=== PATIENT | female | born 1970 | race Caucasian/White ===

== ENCOUNTER 2019-10-24 16:18 | Emergency (ER) | payer SELFPAY ==
--- NOTE | 2019-10-24 16:32 | ED_ITS ---
Documented by User: Eleazar Armas DO 10/25/19 06:13 HPI - URI/Sore Throat General: Chief Complaint: Anxiety Stated Complaint: covid symptoms Time Seen by Provider: 10/24/19 16:26 History of Present Illness: HPI Narrative: 49-year-old female comes in complaining of not feeling well this started yesterday she has some myalgias and a low-grade fever T-max was 99.9 she did take some ibuprofen for it before she came in she has been nauseous no vomiting or diarrhea she has had some myalgias. No alteration in sense of taste or smell. She is concerned she may had COVID because she was around her boyfriend's sister's daughter who may have been exposed while playing basketball. MD elicited complaint: fever (Low-grade) and cough Onset (ago): hour(s) Consistency: constant Severity: mild Able to tolerate fluids by mouth: Yes Exacerbating factors: nothing Relieving factors: nothing Context: sick contacts (Potential boyfriend sister's daughter) Associated symptoms: Deny abdominal pain, chills, chest pain, diarrhea, ear or mastoid pain, fever(s), nasal congestion, nausea or vomiting Review of Systems Const: Denies: fever(s), chills, body aches, change in appetite, fatigue or malaise ENMT: Denies: throat pain, ear or mastoid pain, nasal discharge or nasal congestion Card: Denies: chest pain, edema, dyspnea on exertion or orthopnea Resp: Denies: dyspnea, productive cough or non-productive cough GI: Denies: abdominal pain, nausea, vomiting, hematemesis, coffee ground emesis, diarrhea, constipation, bloating, hematochezia or melena : Denies: flank pain, difficulty voiding, dysuria, urinary frequency or urinary urgency Skin/Breast: Denies: rash or pruritus PFSH ED PFSH: Medical History (Updated 10/24/19 @ 19:27 by Ramses Fajardo MD) No pertinent past medical history Surgical History (Updated 10/24/19 @ 17:48 by Eleazar Armas DO) H/O tubal ligation History of appendectomy Social History (Updated 07/07/19 @ 10:22 by Cheri Draper LPN) Smoking and tobacco status: current some day smoker Alcohol intake: current Physical Exam Const: COMMON NORMALS: no acute distress GENERAL APPEARANCE: cooperative and comfortable ORIENTATION/CONSCIOUSNESS: Yes awake, Yes oriented to person, Yes oriented to place and Yes oriented to time Eye: COMMON NORMALS: Equal, round and reactive pupils present, EOMs intact bilaterally, conjunctivae normal and no scleral icterus CONJUNCTIVA: Yes conjunctivae normal PUPIL: Yes Equal, round and reactive pupils present Neck/C-Spine: COMMON NORMALS: full ROM, no lymphadenopathy, supple and no JVD Lymph: LYMPHATIC: no lymphadenopathy noted and no lymphedema noted Resp: COMMON NORMALS: normal respiratory effort, No retractions, No use of accessory muscles and clear to auscultation bilaterally AUSCULTATION: clear to auscultation bilaterally Cardio: COMMON NORMALS: no JVD, regular rate, regular rhythm and No murmurs present (Cardio) RATE: regular rate RHYTHM: regular rhythm GI: COMMON NORMALS: Soft to palpation and No hepatosplenomegaly present AUSCULTATION: Yes normoactive bowel sounds PALPATION: Yes Soft to palpation, No Tenderness to palpation present (GI), No Guarding due to palpation present (GI) and Yes No hepatosplenomegaly present Extremity: COMMON NORMALS: normal to inspection, capillary refill normal, no clubbing, cyanosis or edema, no calf tenderness and no pedal edema Neuro: SENSORIUM/ORIENTATION: Yes oriented to person, Yes oriented to place and Yes oriented to time Skin: COMMON NORMALS: no rashes or lesions noted GENERAL SKIN EXAM: no rashes or lesions noted Course Vital Signs: Vital signs: Vital Signs Temperature 97.8 F 10/24/19 16:34 Pulse Rate 93 10/24/19 19:41 Respiratory Rate 18 10/24/19 19:41 Blood Pressure 132/86 10/24/19 19:41 Pulse Oximetry 96 10/24/19 19:41 MDM - URI/Sore Throat MDM Narrative: Medical decision making narrative: Ricki villalobos to Dr. Fajardo at change of shift Lab Data: Labs: Lab Results 10/24/19 10/24/19 10/24/19 Range/Units 17:35 18:00 18:40 WBC 12.9 H (4.0-10.0) 10^3/ uL RBC 4.31 (4.1-5.3) 10^6/u L Hgb 12.7 (11.5-15.3) g/dL Hct 40.4 (37.0-47.0) % MCV 93.7 (81-99) fL MCH 29.5 (28.0-34.0) pg MCHC 31.4 (30.0-36.0) g/dL RDW 12.5 (12.1-15.1) % Plt Count 275 (130-400) 10^3/c mm MPV 10.8 H (7.4-10.4) fL Neut % (Auto) 78.3 % Lymph % (Auto) 13.8 % [place] % (Auto) 6.2 % Eos % (Auto) 1.0 % Baso % (Auto) 0.4 % Neut # (Auto) 10.14 H (1.8-7.7) 10^3/u L Lymph # (Auto) 1.8 (0.8-4.8) 10^3/u L [place] # (Auto) 0.8 (0.2-0.9) 10^3/u L Eos # (Auto) 0.1 (0.0-0.8) 10^3/u L Baso # (Auto) 0.1 (0.0-0.1) 10^3/u L Nucleated RBC % (a uto) 0 % Nucleated RBCs # 0.0 /100WBC Specimen Type Arterial Sample Site Radial, right ABG pH 7.45 (7.35-7.45) ABG pCO2 29.3 L (35-45) mmHg ABG pO2 101.0 H (80.0-100.0) mmH g ABG HCO3 20.3 L (22-26) mmol/L ABG O2 Saturation 98.8 ABG Base Excess -2.7 L (-2.0-2.0) mmol/ L David Test Pos A-a O2 Gradient 10.1 H (5-10) mmHg Hematocrit 38.2 (37-47) % Hgb O2 Saturation 96.1 (95-100) % Carboxyhemoglobin 1.8 (0.4-20.1) %THgb Methemoglobin 0.9 (0.4-1.5) % Total Hemoglobin 12.4 (12-16) g/dL Sodium 133.0 (131-143) mmol/L Potassium 4.0 (3.5-5.0) mmol/L Glucose 108.0 (70-115) mg/dL Ionized Calcium 1.2 (1.1-1.4) mmol/L O2 Delivery Device Room air FiO2 21.0 % Isolation Washer ID amh Chloride (98-107) mmol/L Carbon Dioxide (22-29) mmol/L Anion Gap (5-19) BUN (6-20) mg/dL Creatinine (0.5-0.9) mg/dL GFR Calculation (90-130) mL/min Calculated Osmolal ity (285-295) mOsm/k g Calcium (8.5-10.5) mg/dL Total Bilirubin (0.15-1.2) mg/dL AST (0-32) U/L ALT (0-33) U/L Alkaline Phosphata se (35-105) IU/L Total Protein (6.6-8.7) g/dL Albumin (3.5-5.2) g/dL Globulin (1.3-4.6) g/dL Influenza Type A A g Negative (Negative) Influenza Type B A g Negative (Negative) 10/24/19 Range/Units 18:40 WBC (4.0-10.0) 10^3/ uL RBC (4.1-5.3) 10^6/u L Hgb (11.5-15.3) g/dL Hct (37.0-47.0) % MCV (81-99) fL MCH (28.0-34.0) pg MCHC (30.0-36.0) g/dL RDW (12.1-15.1) % Plt Count (130-400) 10^3/c mm MPV (7.4-10.4) fL Neut % (Auto) % Lymph % (Auto) % [place] % (Auto) % Eos % (Auto) % Baso % (Auto) % Neut # (Auto) (1.8-7.7) 10^3/u L Lymph # (Auto) (0.8-4.8) 10^3/u L [place] # (Auto) (0.2-0.9) 10^3/u L Eos # (Auto) (0.0-0.8) 10^3/u L Baso # (Auto) (0.0-0.1) 10^3/u L Nucleated RBC % (a uto) % Nucleated RBCs # /100WBC Specimen Type Sample Site ABG pH (7.35-7.45) ABG pCO2 (35-45) mmHg ABG pO2 (80.0-100.0) mmH g ABG HCO3 (22-26) mmol/L ABG O2 Saturation ABG Base Excess (-2.0-2.0) mmol/ L David Test A-a O2 Gradient (5-10) mmHg Hematocrit (37-47) % Hgb O2 Saturation (95-100) % Carboxyhemoglobin (0.4-20.1) %THgb Methemoglobin (0.4-1.5) % Total Hemoglobin (12-16) g/dL Sodium 132 L (131-143) mmol/L Potassium 4.3 (3.5-5.0) mmol/L Glucose 101 (70-115) mg/dL Ionized Calcium (1.1-1.4) mmol/L O2 Delivery Device FiO2 % Isolation Washer ID Chloride 99 (98-107) mmol/L Carbon Dioxide 21 L (22-29) mmol/L Anion Gap 16.3 (5-19) BUN 12 (6-20) mg/dL Creatinine 0.8 (0.5-0.9) mg/dL GFR Calculation 76.6 L (90-130) mL/min Calculated Osmolal ity 270 L (285-295) mOsm/k g Calcium 9.2 (8.5-10.5) mg/dL Total Bilirubin 1.0 (0.15-1.2) mg/dL AST 25 (0-32) U/L ALT 16 (0-33) U/L Alkaline Phosphata se 88 (35-105) IU/L Total Protein 7.3 (6.6-8.7) g/dL Albumin 4.1 (3.5-5.2) g/dL Globulin 3.2 (1.3-4.6) g/dL Influenza Type A A g (Negative) Influenza Type B A g (Negative) Discharge Plan Discharge Patient Disposition: Home, Self-Care Clinical Impression: Upper respiratory infection Qualifiers: URI type: unspecified URI Qualified Code(s): J06.9 - Acute upper respiratory infection, unspecified Condition: Stable Prescriptions: No Action cetirizine 10 mg Tablet 10 mg PO DAILY RF: 0 Midol 500-25 mg Tablet 1 tab PO Q4H PRN (Reason: Cramps) RF: 0 Discharge Orders: Discharge Order (Routine); Ordered 10/24/19 Ordered By: Ramses Fajardo Discharge Diet: Advance as tolerated Discharge Activity: Resume usual activity Patient Instructions: Upper Respiratory Infection (ED) Discharge Date/Time: 10/24/19 19:36 Coding Level of Care Code ED Casing Mixer for Chg Fwd Exam Comprehensive Documented by User: Ramses Fajardo MD 10/24/19 19:30 HPI - URI/Sore Throat General: Chief Complaint: Anxiety Stated Complaint: covid symptoms Time Seen by Provider: 10/24/19 16:26 [facility] ED PFSH: Medical History (Updated 10/24/19 @ 19:27 by Ramses Fajardo MD) No pertinent past medical history Surgical History (Updated 10/24/19 @ 17:48 by Eleazar Armas DO) H/O tubal ligation History of appendectomy Social History (Updated 07/07/19 @ 10:22 by Cheri Draper LPN) Smoking and tobacco status: current some day smoker Alcohol intake: current Course Vital Signs: Vital signs: Vital Signs Temperature 97.8 F 10/24/19 16:34 Pulse Rate 93 10/24/19 19:41 Respiratory Rate 18 10/24/19 19:41 Blood Pressure 132/86 10/24/19 19:41 Pulse Oximetry 96 10/24/19 19:41 MDM - URI/Sore Throat MDM Narrative: Medical decision making narrative: Patient presents here worried about coronavirus she has upper respiratory infection-like symptoms. Patient was tested and is to self quarantine until results. She is in no respiratory distress here and lab work and x-ray is normal. She is stable for discharge and return if worsening. Patient understands and agrees to plan. Lab Data: Labs: Lab Results 10/24/19 10/24/19 10/24/19 Range/Units 17:35 18:00 18:40 WBC 12.9 H (4.0-10.0) 10^3/ uL RBC 4.31 (4.1-5.3) 10^6/u L Hgb 12.7 (11.5-15.3) g/dL Hct 40.4 (37.0-47.0) % MCV 93.7 (81-99) fL MCH 29.5 (28.0-34.0) pg MCHC 31.4 (30.0-36.0) g/dL RDW 12.5 (12.1-15.1) % Plt Count 275 (130-400) 10^3/c mm MPV 10.8 H (7.4-10.4) fL Neut % (Auto) 78.3 % Lymph % (Auto) 13.8 % [place] % (Auto) 6.2 % Eos % (Auto) 1.0 % Baso % (Auto) 0.4 % Neut # (Auto) 10.14 H (1.8-7.7) 10^3/u L Lymph # (Auto) 1.8 (0.8-4.8) 10^3/u L [place] # (Auto) 0.8 (0.2-0.9) 10^3/u L Eos # (Auto) 0.1 (0.0-0.8) 10^3/u L Baso # (Auto) 0.1 (0.0-0.1) 10^3/u L Nucleated RBC % (a uto) 0 % Nucleated RBCs # 0.0 /100WBC Specimen Type Arterial Sample Site Radial, right ABG pH 7.45 (7.35-7.45) ABG pCO2 29.3 L (35-45) mmHg ABG pO2 101.0 H (80.0-100.0) mmH g ABG HCO3 20.3 L (22-26) mmol/L ABG O2 Saturation 98.8 ABG Base Excess -2.7 L (-2.0-2.0) mmol/ L David Test Pos A-a O2 Gradient 10.1 H (5-10) mmHg Hematocrit 38.2 (37-47) % Hgb O2 Saturation 96.1 (95-100) % Carboxyhemoglobin 1.8 (0.4-20.1) %THgb Methemoglobin 0.9 (0.4-1.5) % Total Hemoglobin 12.4 (12-16) g/dL Sodium 133.0 (131-143) mmol/L Potassium 4.0 (3.5-5.0) mmol/L Glucose 108.0 (70-115) mg/dL Ionized Calcium 1.2 (1.1-1.4) mmol/L O2 Delivery Device Room air FiO2 21.0 % Isolation Washer ID amh Chloride (98-107) mmol/L Carbon Dioxide (22-29) mmol/L Anion Gap (5-19) BUN (6-20) mg/dL Creatinine (0.5-0.9) mg/dL GFR Calculation (90-130) mL/min Calculated Osmolal ity (285-295) mOsm/k g Calcium (8.5-10.5) mg/dL Total Bilirubin (0.15-1.2) mg/dL AST (0-32) U/L ALT (0-33) U/L Alkaline Phosphata se (35-105) IU/L Total Protein (6.6-8.7) g/dL Albumin (3.5-5.2) g/dL Globulin (1.3-4.6) g/dL Influenza Type A A g Negative (Negative) Influenza Type B A g Negative (Negative) 10/24/19 Range/Units 18:40 WBC (4.0-10.0) 10^3/ uL RBC (4.1-5.3) 10^6/u L Hgb (11.5-15.3) g/dL Hct (37.0-47.0) % MCV (81-99) fL MCH (28.0-34.0) pg MCHC (30.0-36.0) g/dL RDW (12.1-15.1) % Plt Count (130-400) 10^3/c mm MPV (7.4-10.4) fL Neut % (Auto) % Lymph % (Auto) % [place] % (Auto) % Eos % (Auto) % Baso % (Auto) % Neut # (Auto) (1.8-7.7) 10^3/u L Lymph # (Auto) (0.8-4.8) 10^3/u L [place] # (Auto) (0.2-0.9) 10^3/u L Eos # (Auto) (0.0-0.8) 10^3/u L Baso # (Auto) (0.0-0.1) 10^3/u L Nucleated RBC % (a uto) % Nucleated RBCs # /100WBC Specimen Type Sample Site ABG pH (7.35-7.45) ABG pCO2 (35-45) mmHg ABG pO2 (80.0-100.0) mmH g ABG HCO3 (22-26) mmol/L ABG O2 Saturation ABG Base Excess (-2.0-2.0) mmol/ L David Test A-a O2 Gradient (5-10) mmHg Hematocrit (37-47) % Hgb O2 Saturation (95-100) % Carboxyhemoglobin (0.4-20.1) %THgb Methemoglobin (0.4-1.5) % Total Hemoglobin (12-16) g/dL Sodium 132 L (131-143) mmol/L Potassium 4.3 (3.5-5.0) mmol/L Glucose 101 (70-115) mg/dL Ionized Calcium (1.1-1.4) mmol/L O2 Delivery Device FiO2 % Isolation Washer ID Chloride 99 (98-107) mmol/L Carbon Dioxide 21 L (22-29) mmol/L Anion Gap 16.3 (5-19) BUN 12 (6-20) mg/dL Creatinine 0.8 (0.5-0.9) mg/dL GFR Calculation 76.6 L (90-130) mL/min Calculated Osmolal ity 270 L (285-295) mOsm/k g Calcium 9.2 (8.5-10.5) mg/dL Total Bilirubin 1.0 (0.15-1.2) mg/dL AST 25 (0-32) U/L ALT 16 (0-33) U/L Alkaline Phosphata se 88 (35-105) IU/L Total Protein 7.3 (6.6-8.7) g/dL Albumin 4.1 (3.5-5.2) g/dL Globulin 3.2 (1.3-4.6) g/dL Influenza Type A A g (Negative) Influenza Type B A g (Negative) Discharge Plan Discharge Patient Disposition: Home, Self-Care Clinical Impression: Upper respiratory infection Qualifiers: URI type: unspecified URI Qualified Code(s): J06.9 - Acute upper respiratory infection, unspecified Condition: Stable Prescriptions: No Action cetirizine 10 mg Tablet 10 mg PO DAILY RF: 0 Midol 500-25 mg Tablet 1 tab PO Q4H PRN (Reason: Cramps) RF: 0 Discharge Orders: Discharge Order (Routine); Ordered 10/24/19 Ordered By: Ramses Fajardo Discharge Diet: Advance as tolerated Discharge Activity: Resume usual activity Patient Instructions: Upper Respiratory Infection (ED) Discharge Date/Time: 10/24/19 19:36 Coding Level of Care Code ED Casing Mixer for Chuck Fwnancy Exam Comprehensive
[2019-10-24 16:34] VITALS: BP 93/76; PULSE 102; RESP 22; TEMP 36.6; O2SAT 98; BMI 17.7
--- NOTE | 2019-10-24 16:53 | XRR_ITS ---
PROCEDURE INFORMATION: Exam: XR Chest, 1 View Exam date and time: 10/24/2019 5:16 PM Age: 49 years old Clinical indication: Dyspnea and other: Resp distress; Covid symptoms; Additional info: Cough TECHNIQUE: Imaging protocol: XR of the chest Views: 1 view. COMPARISON: No relevant prior studies available. FINDINGS: Lungs: The lungs appear hyperinflated. Pleural space: Unremarkable. No pleural effusion. No pneumothorax. Heart/Mediastinum: Unremarkable. No cardiomegaly. Bones/joints: Unremarkable. Soft tissues: Most likely nipple shadows overlie the lower lungs. XR/XR chest 1V portable [id number] IMPRESSION: 1. No acute cardiopulmonary process.
[2019-10-24 17:46] LABS: ABG PCO2 29.3 mmHg (35-45); ABG PH Result 7.45 (7.35-7.45); Alveolar-Arterial Oxygen Gradi 10.1 mmHg (5-10); Arterial Blood Gas Hematocrit 38.2 % (37-47); Base Excess ABG -2.7 mmol/L (-2.0-2.0); Blood Gas Allen Test Pos; Blood Gas Operator Identificat amh; Blood Gas Sample Site Radial, right; Blood Gas Sample Type Arterial; Carboxyhemoglobin 1.8 %THgb (0.4-20.1); HCO3 ABG 20.3 mmol/L (22-26); HGB O2 Sat 96.1 % (95-100); Ionized Calcium Level - ABG 1.2 mmol/L (1.1-1.4); Methemoglobin 0.9 % (0.4-1.5); Oxygen Device ROOM AIR; Oxygen Saturation ABG 98.8; Total Hemoglobin 12.4 g/dL (12-16)
[2019-10-24 18:07] VITALS: PULSE 89; RESP 18; O2SAT 96
[2019-10-24 18:34] LABS: Influenza A by IFA Negative (Negative); Influenza B by IFA Negative (Negative)
[2019-10-24 18:49] LABS: Basophils # 0.1 10^3/uL (0.0-0.1); Basophils % 0.4 %; Eosinophils # 0.1 10^3/uL (0.0-0.8); Hematocrit 40.4 % (37.0-47.0); Hemoglobin 12.7 g/dL (11.5-15.3); Lymphocytes # 1.8 10^3/uL (0.8-4.8); Lymphocytes % 13.8 %; Mean Corpuscular HGB Conc 31.4 g/dL (30.0-36.0); Mean Corpuscular Hemoglobin 29.5 pg (28.0-34.0); Mean Corpuscular Volume 93.7 fL (81-99); Mean Platelet Volume 10.8 fL (7.4-10.4); Monocytes # 0.8 10^3/uL (0.2-0.9); Monocytes % 6.2 %; Neutrophils # 10.14 10^3/uL (1.8-7.7); Neutrophils % 78.3 %; Nucleated Red Blood Cells % 0 %; Platelet Count 275 10^3/cmm (130-400); Red Blood Count 4.31 10^6/uL (4.1-5.3); Red Cell Distribution Width 12.5 % (12.1-15.1); White Blood Count 12.9 10^3/uL (4.0-10.0)
[2019-10-24 19:09] LABS: Alanine Aminotransferase 16 U/L (0-33); Albumin Level 4.1 g/dL (3.5-5.2); Alkaline Phosphatase 88 IU/L (35-105); Aspartate Amino Transferase 25 U/L (0-32); Blood Urea Nitrogen 12 mg/dL (6-20); Calcium 9.2 mg/dL (8.5-10.5); Carbon Dioxide 21 mmol/L (22-29); Chloride 99 mmol/L (98-107); Globulin 3.2 g/dL (1.3-4.6); Glomerular Filtration Rate 76.6 mL/min (90-130); Glucose 101 mg/dL (65-115); Osmolality Calculated 270 mOsm/kg (285-295); Sodium 132 mmol/L (136-145); Total Protein 7.3 g/dL (6.6-8.7)
[2019-10-24 19:36] LABS: Anion Gap 16.3 (5-19); Potassium 4.3 mmol/L (3.5-5.1)
[2019-10-24 19:41] VITALS: BP 132/86; PULSE 93; RESP 18; O2SAT 96
[2019-10-26 19:00] LABS: Quest SARS-CoV-2 RNA NOT DETECTED (NOT DETECTED)
--- NOTE | 2019-10-27 08:10 | PC.NURSE ---
pt called and informed of her neg COVID results.
== END 2019-10-24 19:36 | disposition home or self-care (01) ==
PROVIDERS: Family Medicine; Emergency Provider Emergency Medicine
DX: J06.9 Acute upper respiratory infection, unspecified (principal); F17.210 Nicotine dependence, cigarettes, uncomplicated
CPT/HCPCS: 12345; 36415; 36600; 71045; 80051; 80053; 82810; 83986; 85025; 87635; 87804; 99281; 99283

== ENCOUNTER 2022-01-03 10:14 | Emergency (ER) | payer SELFPAY ==
[2022-01-03 10:37] VITALS: BMI 18.4
[2022-01-03 10:40] VITALS: BP 126/85; PULSE 68; RESP 18; TEMP 36.4; O2SAT 100
--- NOTE | 2022-01-03 11:37 | PC.NURSE ---
Patient asleep at this time
--- NOTE | 2022-01-03 12:49 | ED_ITS ---
HPI - Eye Problem General: Chief complaint: Eye Problems Stated complaint: Can't see out of right eye History of Present Illness: 51-year-old female in today for complaints of loss of vision in the right eye. She reports that this started 4 days ago. She denies any trauma. She denies any eye pain or discomfort. She reports that it is a broken glass appearance and sometimes it is just bedoya with a hint of light at the top. She reports that there was 1 day that it was a little bit better but now it is completely gone again. She denies any change of vision in her left eye. She denies that she has ever had this in the past. Review of Systems Eyes: Reports: change in vision; Denies: eye discomfort, eye discharge or eye redness Card: Denies: chest pain or palpitations Resp: Denies: dyspnea PFSH ED PFSH: Medical History (Updated 11/01/19 @ 00:00 by ) No pertinent past medical history Surgical History (Updated 10/24/19 @ 17:48 by Eleazar Armas DO) H/O tubal ligation History of appendectomy Social History (Updated 07/07/19 @ 10:22 by Cheri Draper LPN) Smoking and tobacco status: current some day smoker Alcohol intake: current Physical Exam Const: COMMON NORMALS: no acute distress, patient oriented x3 and alert Eye: COMMON NORMALS: conjunctivae normal CONJUNCTIVA: Yes conjunctivae normal OTHER: Bilateral pupils are equal and reactive to light. Left eye has seemingly normal visual trujillo. Neck/C-Spine: COMMON NORMALS: no JVD Resp: COMMON NORMALS: normal respiratory effort, No use of accessory muscles and clear to auscultation bilaterally AUSCULTATION: clear to auscultation bilaterally Cardio: COMMON NORMALS: no JVD, regular rate, regular rhythm, S1 normal heart sound present and S2 normal heart sound present RATE: regular rate RHYTHM: regular rhythm HEART SOUNDS: S1 normal heart sound present and S2 normal heart sound present Neuro: COMMON NORMALS: patient oriented x3 SENSORIUM/ORIENTATION: Yes alert Course Vital Signs: Vital signs: Vital Signs Temperature 97.6 F 01/03/22 10:40 Pulse Rate 68 01/03/22 10:40 Respiratory Rate 18 01/03/22 10:40 Blood Pressure 126/85 01/03/22 10:40 Pulse Oximetry 100 01/03/22 10:40 Oxygen Delivery Me thod 01/03/22 10:40 MDM - Eye Problem Medical Decision Making 51-year-old female in today for vision change x4 days. Denies any pain or trauma to the eye. Pupils are equal and reactive to light. I consulted with Dr. Armas who recommended calling Dr. Alberts on-call for ophthalmology. I called and spoke with Dr. Alberts at 1250 and he advised that he would see the patient first thing Wednesday morning in office. He recommend to tell the patient to return to the ER immediately should she notice any changes in the visual trujillo of her left eye. Discharge Plan Discharge Condition: Stable Prescriptions: No Action cetirizine 10 mg Tablet 10 mg PO DAILY Midol 500-25 mg Tablet 1 tab PO Q4H PRN (Reason: Cramps) Coding Level of Care Code ED Airline Flight Attendant for Chuck Holm
[2022-01-03 13:01] VITALS: BP 115/75; PULSE 81; RESP 15; O2SAT 98
--- NOTE | 2022-01-05 10:19 | DCPLANNER ---
Addendum entered by Carine Piedra 01/22/22 15:01: pharmacy general manager called the office of Dr. Alberts to confirm that an appointment had been scheduled for patient. pharmacy general manager was told that patient had an appointment scheduled, and did not attend the appointment. Original Note: pharmacy general manager had message to schedule a follow up appointment for patient with Dr. Alberts. pharmacy general manager faxed patients information to the office of Dr. Alberts. Patients information will be printed and reviewed. Clinic will call patient with appointment information.
== END 2022-01-03 13:03 | disposition home or self-care (01) ==
PROVIDERS: Emergency Provider Nurse Practitioner Family
DX: H54.61 Unqualified visual loss, right eye, normal vision left eye (principal); F17.210 Nicotine dependence, cigarettes, uncomplicated
CPT/HCPCS: 99282

== ENCOUNTER 2022-06-10 11:13 | Emergency (ER) | payer OTHER, SELFPAY ==
[2022-06-10 11:17] VITALS: BP 154/104; PULSE 81; RESP 20; TEMP 36.4; O2SAT 100; BMI 16.5
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
--- NOTE | 2022-06-10 11:38 | XRR_ITS ---
PROCEDURE INFORMATION: Exam: XR Left Finger(s) Exam date and time: 06/10/2022 11:43 AM Age: 51 years old Clinical indication: Injury or trauma; Other: Laceration; Left; Little finger; Additional info: 5th; Trauma TECHNIQUE: Imaging protocol: Radiologic exam of the left fingers. Views: Minimum 2 views. COMPARISON: No relevant prior studies available. FINDINGS: Bones/joints: Alignment is normal. No acute fracture. There is a metallic pin in the 4th metacarpal. Soft tissues: There is a soft tissue fold along the dorsum of the 5th metacarpophalangeal joint which could represent a laceration. XR/XR finger LT min 2V [id number] IMPRESSION: No sign of acute osseous injury.
[2022-06-10] MEDS: tetanus-dipt-pertussis 0.5 mL SDV IM (12:21)
--- NOTE | 2022-06-11 09:31 | DCPLANNER ---
Addendum entered by Carine Piedra 06/12/22 08:56: manager transportation received the following message from the ortho clinic regarding follow up appointment: attempt made to contact patient - left vm and mailed letter to contact our clinic to schedule w/ dr calles Original Note: manager transportation had message to schedule a follow up appointment for patient with ortho. manager transportation sent patients information to the front office staff at ortho. Patients information will be printed and reviewed. Clinic will call patient with appointment information.
--- NOTE | 2022-06-16 14:05 | DCPLANNER ---
Addendum entered by Carine Piedra 06/26/22 09:23: Patient had a follow up appointment scheduled with [facility] - patient did not attend appointment Addendum entered by Carine Piedra 06/16/22 14:06: dental office manager called [facility], gave clinic patients information. A follow up appointment was scheduled for patient for , June 25, 2022 at 1:[address] Leigh. dental office manager called patient and gave patient the appointment information. Original Note: 06.14.22 - patient was called due to no primary care physician - patient stated that she would like to be established with a primary care physician.
== END 2022-06-10 12:40 | disposition home or self-care (01) ==
PROVIDERS: Emergency Provider Physician Assistant
DX: S61.217A Laceration without foreign body of left little finger without damage to nail, initial encounter (principal); S66.327A Laceration of extensor muscle, fascia and tendon of left little finger at wrist and hand level, initial encounter; W25.XXXA Contact with sharp glass, initial encounter; F17.210 Nicotine dependence, cigarettes, uncomplicated; Z23 Encounter for immunization
CPT/HCPCS: 12001; 73140; 90471; 90715; 99283

== ENCOUNTER 2022-08-18 11:33 | Emergency (ER) | payer OTHER, SELFPAY ==
[2022-08-18 12:07] VITALS: BMI 17.7
[2022-08-18 12:11] VITALS: BP 144/84; PULSE 75; RESP 18; TEMP 36.5; O2SAT 100
[2022-08-18 12:50] LABS: Add Urine Microscopic? YES; Bilirubin Urine Neg (Negative); Blood Urine Neg (Negative); Glucose Urine UA Norm (Normal); Ketones Urine Negative (Negative); Leukocyte Esterase Urine 2+ (Negative); Nitrate Urine Negative (Negative); Protein Urine Neg (Negative); Urine Appearance Cloudy (CLEAR); Urine Color Yellow (Yellow); Urobilinogen Urine Norm (Negative); pH Urine 5 (5-7)
[2022-08-18 12:52] LABS: Bacteria Urine 2+ /hpf; RBC Urine 0-4 /hpf (0-2); Squamous Epithelial Cell Urine 15-25 /hpf (0-5); WBC Urine 40-55 /hpf (0-5)
[2022-08-18 12:56] LABS: Basophils # 0.1 10^3/uL (0.0-0.1); Eosinophils # 0.2 10^3/uL (0.0-0.8); Eosinophils % 3.1 %; Hematocrit 40.4 % (37.0-47.0); Lymphocytes # 2.2 10^3/uL (0.8-4.8); Lymphocytes % 27.5 %; Mean Corpuscular HGB Conc 32.2 g/dL (30.0-36.0); Mean Corpuscular Hemoglobin 29.7 pg (28.0-34.0); Mean Corpuscular Volume 92.4 fl (81-99); Mean Platelet Volume 9.7 fL (7.4-10.4); Monocytes # 0.5 10^3/uL (0.2-0.9); Monocytes % 6.5 %; Neutrophils # 4.82 10^3/uL (1.8-7.7); Neutrophils % 61.5 %; Nucleated Red Blood Cells % 0 %; Platelet Count 389 10^3/cmm (130-400); Red Blood Count 4.37 10^6/uL (4.1-5.3); Red Cell Distribution Width 12.7 % (12.1-15.1); White Blood Count 7.8 10^3/uL (4.0-10.0)
[2022-08-18 13:17] LABS: HCG, Serum Qual Negative (Negative)
[2022-08-18 13:19] LABS: Alanine Aminotransferase 10 U/L (0-33); Albumin Level 4.1 g/dL (3.5-5.2); Alkaline Phosphatase 118 U/L (35-105); Anion Gap 15.9 (5-19); Aspartate Amino Transferase 14 U/L (0-32); Blood Urea Nitrogen 11 mg/dL (6-20); Carbon Dioxide 28 mmol/L (22-29); Chloride 102 mmol/L (98-107); Globulin 3.2 g/dL (1.3-4.6); Glomerular Filtration Rate 66.3 mL/min (90-130); Glucose 91 mg/dL (65-115); Lipase 22 U/L (13-60); Osmolality Calculated 293 mOsm/kg (285-295); Potassium 3.9 mmol/L (3.5-5.1); Sodium 142 mmol/L (136-145); Total Bilirubin 0.4 mg/dL (0.15-1.2); Total Protein 7.3 g/dL (6.6-8.7)
--- NOTE | 2022-08-18 14:28 | ED_ITS ---
HPI - Abdominal Pain General: Chief Complaint: Abdominal Pain Stated Complaint: Lower Right side abd pain Time Seen by Provider: 08/18/22 13:58 Source: patient Mode of arrival: ambulatory History of Present Illness: 51-year-old female presents emergency room complaining of right lower quadrant right-sided pelvic pain which she describes as severe. She has had some vaginal discharge. Her significant other has had other partners recently and she is concerned she may have gotten an infection she has been very nauseous no vomi ting no diarrhea. No dysuria urgency or frequency. MD elicited complaint: abdominal pain Pertinent past history: none Onset (ago): hour(s) Pain Consistency: constant Location: Pelvis Severity: severe Quality: cramping Exacerbating factors: nothing Relieving factors: nothing Associated Symptoms: Reports bloating, GI cramping and nausea; Denies no associated symptoms, anorexia, belching, change in bowel habits, arriaza ge in stool character, chills, coffee ground emesis, constipation, diarrhea, dyspepsia, dysuria, excessive flatus, fever(s), heartburn, hematochezia, hematuria, hematemesis, fecal incontinence, loose stools, melena, poor appetite, syncope and vomiting Related Data: Date of Last Menstrual Period: 07/28/22 Review of Systems Const: Denies: fever(s) or chills ENMT: Denies: throat pain, ear or mastoid pain, nasal discharge or nasal congestion Card: Denies: syncope Resp: Denies: dyspnea, productive cough or non-productive cough GI: Reports: nausea, bloating and GI cramping; Denies: vomiting, hematemesis, coffee ground emesis, heartburn, diarrhea, con stipation, belching, excessive flatus, fecal incontinence, change in bowel habits, change in stool character, hematochezia or melena : Reports: vaginal discharge and pelvic pain (Right); Denies: dysuria or hematuria Skin/Breast: Denies: rash or pruritus PFSH ED PFSH: Medical History No pertinent past medical history Surgical History H/O tubal ligation History of appendectomy Social History Smoking and tobacco status: current some day smoker Alcohol intake: current Substance/Drug Use: never Female Reproductive History: Date of last menstrual period: 07/28/22 Physical Exam Const: COMMON NORMALS: no acute distress GENERAL APPEARANCE: cooperative and comfortable ORIENTATION/CONSCIOUSNESS: Yes awake, Yes oriented to person, Yes oriented to place and Yes oriented to time HENMT: COMMON NORMALS: normocephalic, atraumatic and hearing grossly normal bilaterally HEAD & SCALP: normocephalic and atraumatic Resp: COMMON NORMALS: normal respiratory effort, No retractions, No use of accessory muscles and clear to auscultation bilaterally AUSCULTATION: clear to auscultation bilaterally Cardio: COMMON NORMALS: regular rate, regular rhythm and No murmurs present (Cardio) RATE: regular rate RHYTHM: regular rhythm GI: COMMON NORMALS: Soft to palpation and No hepatosplenomegaly present AUSCULTATION: Yes normoactive bowel sounds PALPATION: Yes Soft to palpation, No Tenderness to palpation present (GI), No Guarding due to palpation present (GI) and Yes No hepatosplenomegaly present OTHER: Mild right lower quadrant comfort no guarding or rebound. Low in the pelvic region. : COMMON NORMALS: Yes no CVA tenderness BLADDER/KIDNEY EXAM: Yes no CVA tenderness Back/Pelvis: COMMON NORMALS: no CVA tenderness Extremity: COMMON NORMALS: normal to inspection, capillary refill normal, no clubbing, cyanosis or edema, no calf tenderness and no pedal edema Neuro: SENSORIUM/ORIENTATION: Yes oriented to person, Yes oriented to place and Yes oriented to time Skin: COMMON NORMALS: no rashes or lesions noted GENERAL SKIN EXAM: no rashes or lesions noted Course Vital Signs: Vital signs: Vital Signs Temperature 97.7 F 08/18/22 12:11 Pulse Rate 75 08/18/22 12:11 Respiratory Rate 18 08/18/22 12:11 Blood Pressure 144/84 08/18/22 12:11 Pulse Oximetry 98 08/18/22 15:45 Oxygen Delivery Me thod Room Air 08/18/22 15:45 MDM - Abdominal Pain Medical Decision Making Above exam done by Geovanna Rice PA-C here notes. Patient does have cervical motion tenderness and copious cervical discharge per Ms. Rice's exam. Treat empirically for PID direct observed therapy 1 g Zithromax, IM Rocephin. Discharge home on doxycycline wet mount was negative. Cultures are pending reviewed findings with the patient ultrasound reviewed as well. No tubo-ovarian abscess identified Medical Records I reviewed the patient's medical records. Lab Data I reviewed the patient's lab results. 08/18/22 12:50 08/18/22 12:50 Labs/Radiology: Radiology Impressions Transvaginal US 08/18/22 15:06 IMPRESSION: Normal transvaginal pelvic ultrasound. No free fluid. Laboratory Results WBC 7.8 10^3/uL (4.0-10.0) 08/18/22 12:50 RBC 4.37 10^6/uL (4.1-5.3) 08/18/22 12:50 Hgb 13.0 g/dL (11.5-15.3) 08/18/22 12:50 Hct 40.4 % (37.0-47.0) 08/18/22 12:50 MCV 92.4 fl (81-99) 08/18/22 12:50 MCH 29.7 pg (28.0-34.0) 08/18/22 12:50 MCHC 32.2 g/dL (30.0-36.0) 08/18/22 12:50 RDW 12.7 % (12.1-15.1) 08/18/22 12:50 Plt Count 389 10^3/cmm (130-400) 08/18/22 12:50 MPV 9.7 fL (7.4-10.4) 08/18/22 12:50 Neut % (Auto) 61.5 % 08/18/22 12:50 Lymph % (Auto) 27.5 % 08/18/22 12:50 [place] % (Auto) 6.5 % 08/18/22 12:50 Eos % (Auto) 3.1 % 08/18/22 12:50 Baso % (Auto) 1.0 % 08/18/22 12:50 Neut # (Auto) 4.82 10^3/uL (1.8-7.7) 08/18/22 12:50 Lymph # (Auto) 2.2 10^3/uL (0.8-4.8) 08/18/22 12:50 [place] # (Auto) 0.5 10^3/uL (0.2-0.9) 08/18/22 12:50 Eos # (Auto) 0.2 10^3/uL (0.0-0.8) 08/18/22 12:50 Baso # (Auto) 0.1 10^3/uL (0.0-0.1) 08/18/22 12:50 Nucleated RBC % (auto) 0 % 08/18/22 12:50 Nucleated RBCs # 0.0 /100WBC 08/18/22 12:50 Sodium 142 mmol/L (136-145) 08/18/22 12:50 Potassium 3.9 mmol/L (3.5-5.1) 08/18/22 12:50 Chloride 102 mmol/L (98-107) 08/18/22 12:50 Carbon Dioxide 28 mmol/L (22-29) 08/18/22 12:50 Anion Gap 15.9 (5-19) 08/18/22 12:50 BUN 11 mg/dL (6-20) 08/18/22 12:50 Creatinine 0.9 mg/dL (0.5-0.9) 08/18/22 12:50 GFR Calculation 66.3 mL/min (90-130) L 08/18/22 12:50 Glucose 91 mg/dL (65-115) 08/18/22 12:50 Calculated Osmolality 293 mOsm/kg (285-295) 08/18/22 12:50 Calcium 9.0 mg/dL (8.5-10.5) 08/18/22 12:50 Total Bilirubin 0.4 mg/dL (0.15-1.2) 08/18/22 12:50 AST 14 U/L (0-32) 08/18/22 12:50 ALT 10 U/L (0-33) 08/18/22 12:50 Alkaline Phosphatase 118 U/L (35-105) H 08/18/22 12:50 Total Protein 7.3 g/dL (6.6-8.7) 08/18/22 12:50 Albumin 4.1 g/dL (3.5-5.2) 08/18/22 12:50 Globulin 3.2 g/dL (1.3-4.6) 08/18/22 12:50 Lipase 22 U/L (13-60) 08/18/22 12:50 HCG, Qual Negative (Negative) 08/18/22 12:50 Urine Color Yellow (Yellow) 08/18/22 12:24 Urine Appearance Cloudy (CLEAR) A 08/18/22 12:24 Urine pH 5 (5-7) 08/18/22 12:24 Ur Specific [place] 1.020 (1.005-1.030) 08/18/22 12:24 Urine Protein Neg (Negative) 08/18/22 12:24 Urine Glucose (UA) Norm (Normal) 08/18/22 12:24 Urine Ketones Negative (Negative) 08/18/22 12:24 Urine Blood Neg (Negative) 08/18/22 12:24 Urine Nitrate Negative (Negative) 08/18/22 12:24 Urine Bilirubin Neg (Negative) 08/18/22 12:24 Urine Urobilinogen Norm mg/dL (Negative) 08/18/22 12:24 Ur Leukocyte Esterase 2+ (Negative) H 08/18/22 12:24 Urine RBC 0-4 /hpf (0-2) H 08/18/22 12:24 Urine WBC 40-55 /hpf (0-5) H 08/18/22 12:24 Ur Squamous Epith Cells 15-25 /hpf (0-5) H 08/18/22 12:24 Amorphous Sediment Not Reportable 08/18/22 12:24 Urine Bacteria 2+ /hpf (NONE) H 08/18/22 12:24 Discharge Plan Discharge Patient Disposition: Home Clinical Impression: Acute PID (pelvic inflammatory disease) Condition: Stable Prescriptions: New doxycycline hyclate 100 mg capsule 100 mg PO BID 14 Days Qty: 28 0RF hydrocodone-acetaminophen 5-325 mg tablet 1 tab PO Q6H PRN (Reason: pain) Qty: 10 0RF No Action cetirizine 10 mg Tablet 10 mg PO DAILY Tylenol Ex Str Rapid Release 500 mg Tablet 1,000 mg PO Q6H PRN (Reason: Pain) Discharge Orders: Discharge ED (Routine); Ordered 08/18/22 Ordered By: Eleazar Armas Discharge Diet: Usual diet Discharge Activity: Increase activity as tolerated Patient Instructions: Pelvic Inflammatory Disease (ED), Opioid Safety, Pain Management Coding Level of Care Code ED Development Mechanic for Chg Mihai
--- NOTE | 2022-08-18 15:06 | US_ITS ---
WS: [id number] US transvaginal [id number] HISTORY: PID COMPARISON: None available. Uterus: 9.0 cm x 5.4 cm x 4.5 cm. Normal size anteverted uterus. No fibroid or mass. Endometrium: 1.3 cm. Very mild heterogeneity within the endometrium. Could be related to the menstrua l cycle. Right ovary: 3.0 cm x 2.4 cm x 3.1 cm. Normal size and vascularity, no cystic or solid masses. Small follicles. Left ovary: 2.1 cm x 1.4 cm x 2.3 cm. Normal size and vascularity, no cystic or solid masses. Small f ollicles. No free fluid in the cul-de-sac. US/US transvaginal [id number] IMPRESSION: Normal transvaginal pelvic ultrasound. No free fluid.
--- NOTE | 2022-08-18 15:20 | PC.PHAR ---
pt states she doesnt take any prescription medications pt states just been taking the otc medications entered pt states she thinks the allergy medication she has been taking is zyrtec
[2022-08-18 15:45] VITALS: O2SAT 98
[2022-08-18] MEDS: azithromycin 250 mg Tablet 1000 MG PO (16:27)
[2022-08-18] MEDS: ketorolac 60 mg/2 mL INJ IM (16:28)
[2022-08-18] MEDS: cefTRIAXone 1,000 MG in water for injection-sterile 2.1 ML 2.1 MG IM (16:32)
--- NOTE | 2022-09-02 13:12 | DCPLANNER ---
TCM called patient due to no primary care physician - no answer at this time.
== END 2022-08-18 16:39 | disposition home or self-care (01) ==
PROVIDERS: Physician Assistant; Emergency Provider Family Medicine
DX: N73.0 Acute parametritis and pelvic cellulitis (principal); F17.210 Nicotine dependence, cigarettes, uncomplicated
CPT/HCPCS: 36415; 76830; 80053; 81001; 83690; 84703; 85025; 87210; 87491; 87591; 87661; 96372; 99284; J0696; J1885; Q0144

== ENCOUNTER → 2023-09-13 17:20 | Outpatient (BNVA) | payer OTHER, SELFPAY | PROVIDERS: Visit Provider Registered Nurse Neonatal Intensive Care | DX: Z20.2 Contact with and (suspected) exposure to infections with a predominantly sexual mode of transmission (principal); L23.7 Allergic contact dermatitis due to plants, except food | CPT/HCPCS: 87491; 87591 ==

== ENCOUNTER 2023-10-19 08:00 | Emergency (ER) | payer SELFPAY ==
[2023-10-19 08:08] VITALS: BP 157/87; PULSE 65; RESP 18; TEMP 36.7; O2SAT 99; BMI 19.2
--- NOTE | 2023-10-19 08:15 | ED_ITS ---
HPI - Female Genitourinary 2 General: Chief complaint: Urogenital-Female Stated complaint: low back pain Time Seen by Provider: 10/19/23 08:13 Source: patient Mode of arrival: ambulatory History of Present Illness: 53-year-old female presents emergency ro om complaining of burning sensation with urination and low back pain lower abdominal pain this been going on for the last couple of days no fever. Denies any hematuria no history of kidney stones has had dysuria and urgency. Previous surgeries include tubal ligation and appendectomy. Patient is postmenopausal. MD elicited complaint: dysuria and flank pain Onset (ago): day(s) (3) Severity: moderate Quality of pain: sharp Consistency: constant Vaginal discharge: none Vaginal bleeding: none Urinary symptoms: Dysuria and Flank Pain Exacerbating factors: urination and movement Associated symptoms: Deny abdominal pain, short of breath, fevers/chills, headache(s), nausea, rash, seizures, syncope, vaginal bleeding, vaginal discharge or weakness Review of Systems 2 Const: Denies: fever(s) or chills Card: Denies: chest pain or syncope Resp: Denies: dyspnea GI: Denies: abdominal pain or nausea : Denies: dysuria, urinary frequency, urinary urgency or vaginal discharge Musc: Denies: neck pain or back pain Skin/Breast: Denies: rash Neuro: Denies: headache(s) PFSH ED 2 PFSH: Medical History Contact dermatitis Surgical History H/O tubal ligation History of appendectomy Social History Smoking and tobacco/nicotine status: current some day tobacco/nicotine user Alcohol intake: current Substance/Drug Use: never Physical Exam 2 Const: GENERAL APPEARANCE: cooperative and comfortable O RIENTATION/CONSCIOUSNESS: Yes awake, Yes oriented to person, Yes oriented to place and Yes oriented to time HENMT: COMMON NORMALS: normocephalic, atraumatic and hearing grossly normal bilaterally HEAD & SCALP: normocephalic and atraumatic Resp: COMMON NORMALS: normal respiratory effort, No retractions, No use of accessory muscles and clear to auscultation bilaterally AUSCULTATION: clear to auscultation bilaterally Cardio: COMMON NORMALS: regular rate, regular rhythm and No murmurs present (Cardio) RATE: regular rate RHYTHM: regular rhythm GI: COMMON NORMALS: No hepatosplenomegaly present AUSCULTATION: Yes normoactive bowel sounds PALPATION: Yes Tenderness to palpation present (GI) (Lower abdominal tenderness bilaterally), No Guarding due to palpation present (GI) and Yes No hepatosplenomegaly present : SPECULUM EXAM - VAGINA: No vaginal bleeding OB/EXTERNAL & SPECULUM: No vaginal bleeding Extremity: COMMON NORMALS: normal to inspection, capillary refill normal, no clubbing, cyanosis or edema, no calf tenderness and no pedal edema Neuro: SENSORIUM/ORIENTATION: Yes oriented to person, Yes oriented to place and Yes oriented to time Skin: COMMON NORMALS: no rashes or lesions noted GENERAL SKIN EXAM: no rashes or lesions noted Course 2 Vital Signs: Vital signs: Vital Signs Temperature 98.0 F 10/19/23 08:08 Pulse Rate 65 10/19/23 08:08 Respiratory Rate 18 10/19/23 08:08 Blood Pressure 157/87 10/19/23 08:08 Pulse Oximetry 99 10/19/23 08:08 Oxygen Delivery Me thod Room Air 10/19/23 08:08 MDM - Female Medical Decision Making No significant leukocytosis patient does have quite a bit of flank pain. No nephrolithiasis on CT based on her degree of pain and location as well as the urine specimen showing significant infection suspect patient does have pyelonephritis. She is given ceftriaxone here and discharged home on ciprofloxacin to start tomorrow. She is also given hydrocodone promethazine increased p.o. intake return if has further problems Medical Records I reviewed the patient's medical records. Lab Data I reviewed the patient's lab results. 10/19/23 08:19 10/19/23 08:19 Radiology Impressions Abdomen/Pelvis CT 10/19/23 08:27 IMPRESSION: 1. No obstructing renal or ureteral calculi. No hydronephrosis. 2. A few tiny indeterminate LEFT renal lesions. This can be followed up with ultrasound on an elective basis. 3. Tiny hepatic cyst. 4. Moderate fecal retention in the transverse colon. 5. No other acute findings. Laboratory Results WBC 10.24 10^3/uL (3.29-11.43) 10/19/23 08:19 RBC 4.82 10^6/uL (3.85-5.65) 10/19/23 08:19 Hgb 14.50 g/dL (11.27-16.99) 10/19/23 08:19 Hct 43.9 % (36-47) 10/19/23 08:19 MCV 91.1 fl (85-98) 10/19/23 08:19 MCH 30.1 pg (27-33) 10/19/23 08:19 MCHC 33.0 g/dL (30-55) 10/19/23 08:19 RDW 12.0 % (12.1-15.1) L 10/19/23 08:19 Plt Count 306 10^3/cmm (157-399) 10/19/23 08:19 MPV 10.2 fL (7.4-10.4) 10/19/23 08:19 Neut % (Auto) 70.5 % 10/19/23 08:19 Lymph % (Auto) 21.8 % 10/19/23 08:19 [place] % (Auto) 5.1 % 10/19/23 08:19 Eos % (Auto) 1.6 % 10/19/23 08:19 Baso % (Auto) 0.8 % 10/19/23 08:19 Neut # (Auto) 7.23 10^3/uL (1.8-7.7) 10/19/23 08:19 Lymph # (Auto) 2.2 10^3/uL (0.8-4.8) 10/19/23 08:19 [place] # (Auto) 0.5 10^3/uL (0.2-0.9) 10/19/23 08:19 Eos # (Auto) 0.2 10^3/uL (0.0-0.8) 10/19/23 08:19 Baso # (Auto) 0.1 10^3/uL (0.0-0.1) 10/19/23 08:19 Nucleated RBC % (auto) 0 % 10/19/23 08:19 Nucleated RBCs # 0.0 /100WBC 10/19/23 08:19 Sodium 137 mmol/L (136-145) 10/19/23 08:19 Potassium 4.3 mmol/L (3.5-5.1) 10/19/23 08:19 Chloride 99 mmol/L (98-107) 10/19/23 08:19 Carbon Dioxide 23 mmol/L (22-29) 10/19/23 08:19 Anion Gap 19.3 (5-19) H 10/19/23 08:19 BUN 11 mg/dL (6-20) 10/19/23 08:19 Creatinine 0.9 mg/dL (0.5-0.9) 10/19/23 08:19 GFR Calculation 65.8 mL/min (90-130) L 10/19/23 08:19 Glucose 119 mg/dL (65-115) H 10/19/23 08:19 Calculated Osmolality 285 mOsm/kg (285-295) 10/19/23 08:19 Calcium 9.6 mg/dL (8.5-10.5) 10/19/23 08:19 Total Bilirubin 0.6 mg/dL (0.15-1.2) 10/19/23 08:19 AST 17 U/L (0-32) 10/19/23 08:19 ALT 11 U/L (0-33) 10/19/23 08:19 Alkaline Phosphatase 110 U/L (35-105) H 10/19/23 08:19 Total Protein 7.9 g/dL (6.6-8.7) 10/19/23 08:19 Albumin 4.6 g/dL (3.5-5.2) 10/19/23 08:19 Globulin 3.3 g/dL (1.3-4.6) 10/19/23 08:19 Urine Color Yellow (Yellow) 10/19/23 08:42 Urine Appearance Cloudy (CLEAR) A 10/19/23 08:42 Urine pH 5 (5-7) 10/19/23 08:42 Ur Specific [place] 1.015 (1.005-1.030) 10/19/23 08:42 Urine Protein 2+ (Negative) H 10/19/23 08:42 Urine Glucose (UA) Norm (Normal) 10/19/23 08:42 Urine Ketones Negative (Negative) 10/19/23 08:42 Urine Blood 3+ (Negative) H 10/19/23 08:42 Urine Nitrate Negative (Negative) 10/19/23 08:42 Urine Bilirubin Neg (Negative) 10/19/23 08:42 Urine Urobilinogen Norm mg/dL (Negative) 10/19/23 08:42 Ur Leukocyte Esterase 2+ (Negative) H 10/19/23 08:42 Urine RBC 15-25 /hpf (0-2) H 10/19/23 08:42 Urine WBC 80-100 /hpf (0-5) H 10/19/23 08:42 Ur Squamous Epith Cells 0-4 /hpf (0-5) H 10/19/23 08:42 Amorphous Sediment Not Reportable 10/19/23 08:42 Urine Bacteria Trace /hpf (NONE) 10/19/23 08:42 Urine Mucus None /hpf 10/19/23 08:42 Ur Oval Fat Bodies 1+ /hpf 10/19/23 08:42 All radiology interpretation(s) finalized by discharge Discharge Plan Discharge Patient Disposition: Home Clinical Impression: Pyelonephritis Condition: Stable Prescriptions: New Cipro 500 mg tablet 500 mg PO BID Qty: 14 0RF hydrocodone-acetaminophen 5-325 mg tablet 1 tab PO Q6H PRN (Reason: pain) Qty: 10 0RF promethazine 25 mg tablet 25 mg PO Q6H PRN (Reason: nausea and vomiting) Qty: 10 0RF No Action Zanfel Cleanser 1 ea topical BID Qty: 30 0RF cetirizine 10 mg tablet 10 mg PO DAILY PRN (Reason: allergy symptoms) Qty: 90 0RF triamcinolone acetonide 0.1 % cream 1 applic topical BID 7 Days Qty: 30 0RF metronidazole 500 mg tablet 500 mg PO BID 10 Days Qty: 20 0RF Tylenol Ex Str Rapid Release 500 mg Tablet 1,000 mg PO Q6H PRN (Reason: Pain) Discharge Orders: Discharge ED (Routine); Ordered 10/19/23 Ordered By: Eleazar Armas Discharge Diet: Usual diet Discharge Activity: Increase activity as tolerated Patient Instructions: Kidney Infection (ED), Opioid Safety, Pain Management, Pyelonephritis Activity Restrictions/Additional Instructions: Thank you for choosing [facility] for your healthcare needs today. It is very important that you follow up as instructed or that you return to the Emergency Department should you have concerns or if your condition changes or worsens in any way. Coding Level of Care Code ED Outpatient Phlebotomist for Chuck Holm
[2023-10-19 08:25] LABS: Basophils # 0.1 10^3/uL (0.0-0.1); Basophils % 0.8 %; Eosinophils # 0.2 10^3/uL (0.0-0.8); Eosinophils % 1.6 %; Hematocrit 43.9 % (36-47); Lymphocytes # 2.2 10^3/uL (0.8-4.8); Lymphocytes % 21.8 %; Mean Corpuscular Hemoglobin 30.1 pg (27-33); Mean Corpuscular Volume 91.1 fl (85-98); Mean Platelet Volume 10.2 fL (7.4-10.4); Monocytes # 0.5 10^3/uL (0.2-0.9); Monocytes % 5.1 %; Neutrophils # 7.23 10^3/uL (1.8-7.7); Neutrophils % 70.5 %; Nucleated Red Blood Cells % 0 %; Platelet Count 306 10^3/cmm (157-399); Red Blood Count 4.82 10^6/uL (3.85-5.65); White Blood Count 10.24 10^3/uL (3.29-11.43)
--- NOTE | 2023-10-19 08:27 | CT_ITS ---
WS: [id number] CT ABDOMEN PELVIS TECHNIQUE: Noncontrast CT of the abdomen and pelvis with coronal and sagittal reformatted images. CLINICAL INFORMATION: flank pain COMPARISON: None. DLP: 335.[address] scans at [facility] use at least one of these dose optimization techniques: automated e xposure control; mA and/or kV adjustment per patient size (includes targeted exams where dose is matc hed to clinical indication); or iterative reconstruction. FINDINGS: Lung bases are well aerated. Small cyst in the liver. Mild hepatomegaly. Normal noncontrast spleen. N ormal GE junction. Noncontrast gallbladder. Normal noncontrast pancreas. Adrenal glands are normal. Normal caliber abdominal aorta. No hydronephrosis in either kidney. Small LEFT renal cyst measuring 10 mm. A few tiny indeterminate L EFT renal lesions some with increased attenuation likely hemorrhagic or proteinaceous tiny cortical c ysts.No obstructing renal or ureteral calculi. Pelvic phleboliths. Tortuous sigmoid colon. Moderate fecal retention in the transverse colon. No evidence of high-grade s mall or large bowel obstruction. No free fluid in the pelvis. Tiny fat-containing umbilical hernia. D isc narrowing L5-S1 with disc desiccation. CT/CT kidney stone [id number] IMPRESSION: 1. No obstructing renal or ureteral calculi. No hydronephrosis. 2. A few tiny indeterminate LEFT renal lesions. This can be followed up with u ltrasound on an elective basis. 3. Tiny hepatic cyst. 4. Moderate fecal retention in the transverse colon. 5. No other acute findings.
[2023-10-19 08:41] LABS: Alanine Aminotransferase 11 U/L (0-33); Albumin Level 4.6 g/dL (3.5-5.2); Alkaline Phosphatase 110 U/L (35-105); Anion Gap 19.3 (5-19); Aspartate Amino Transferase 17 U/L (0-32); Blood Urea Nitrogen 11 mg/dL (6-20); Calcium 9.6 mg/dL (8.5-10.5); Carbon Dioxide 23 mmol/L (22-29); Chloride 99 mmol/L (98-107); Creatinine Clr Calc Pharmacy 73.0764; Globulin 3.3 g/dL (1.3-4.6); Glomerular Filtration Rate 65.8 mL/min (90-130); Glucose 119 mg/dL (65-115); Osmolality Calculated 285 mOsm/kg (285-295); Potassium 4.3 mmol/L (3.5-5.1); Sodium 137 mmol/L (136-145); Total Bilirubin 0.6 mg/dL (0.15-1.2); Total Protein 7.9 g/dL (6.6-8.7)
[2023-10-19 08:58] LABS: Blood Urine 3+ (Negative); Glucose Urine UA Norm (Normal); Ketones Urine Negative (Negative); Protein Urine 2+ (Negative); Specific Gravity, Urine 1.015 (1.005-1.030); Urine Appearance Cloudy (CLEAR); Urine Color Yellow (Yellow); pH Urine 5 (5-7)
[2023-10-19 08:59] LABS: Add Urine Microscopic? YES; Bilirubin Urine Neg (Negative); Leukocyte Esterase Urine 2+ (Negative); Nitrate Urine Negative (Negative); Urobilinogen Urine Norm (Negative)
[2023-10-19 09:16] LABS: Add Urine Culture? Yes; Bacteria Urine TRACE /hpf; Oval Fat Bodies Urine 1+ /hpf; RBC Urine 15-25 /hpf (0-2); Squamous Epithelial Cell Urine 0-4 /hpf (0-5); WBC Urine 80-100 /hpf (0-5)
[2023-10-19] MEDS: cefTRIAXone 1,000 mg SDV 1000 MG IVP (09:54)
== END 2023-10-19 10:07 | disposition home or self-care (01) ==
PROVIDERS: Emergency Provider Family Medicine
DX: N12 Tubulo-interstitial nephritis, not specified as acute or chronic (principal); Z72.0 Tobacco use
CPT/HCPCS: 74176; 80053; 81001; 85025; 87077; 87086; 87186; 96374; 99285; J0696

== ENCOUNTER 2024-03-26 11:30 | Emergency (ER) | payer SELFPAY ==
[2024-03-26] VITALS (9 sets, daily range): BP systolic 122–163; BP diastolic 86–112; PULSE 76–102; RESP 16; TEMP 36.6; O2SAT 96–100; BMI 19.2
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
[2024-03-26] MEDS: ibuprofen 800 mg tablet PO (15:33)
== END 2024-03-26 15:37 | disposition home or self-care (01) ==
PROVIDERS: Emergency Provider Emergency Medicine
DX: Z03.89 Encounter for observation for other suspected diseases and conditions ruled out (principal); Y04.8XXA Assault by other bodily force, initial encounter; Z72.0 Tobacco use
CPT/HCPCS: 70450; 72125; 73130; 99284

== ENCOUNTER 2024-06-28 02:41 | Emergency (ER) | payer SELFPAY ==
[2024-06-28 02:46] VITALS: BP 114/90; PULSE 77; RESP 18; TEMP 36.8; O2SAT 100; BMI 19.2
--- NOTE | 2024-06-28 02:55 | W.ED.SKABFB ---
HPI - Skin/Abscess/Foreign Bdy General: Chief complaint: Skin/Abscess/Foreign Body Stated complaint: Lloyd Sue Time Seen by Provider: 06/28/24 02:49 History of Present Illness: 53-year-old female presents emergency room Pawel sue. She was cleaning her garden yesterday and she woke up tonight with a rash on her chest and abdomen. Some on her arms as well Related Data Home Medications ?Medication ?Instructions ?Recorded ?Confirmed acetaminophen 500 mg tablet 1,000 mg PO Q6H PRN Pain 08/18/22 09/13/23 Previous Rx's ?Medication ?Instructions ?Recorded cetirizine 10 mg tablet 10 mg PO DAILY PRN allergy 08/20/23 symptoms #90 tabs skin cleanser combination no.8 1 ea topical BID contact 08/20/23 (Zanfel topical cleanser) dermatitis #30 grams triamcinolone acetonide 0.1 % 1 applic topical BID 7 days #30 09/13/23 topical cream grams metronidazole 500 mg tablet 500 mg PO BID 10 days #20 tabs 09/17/23 ciprofloxacin HCl 500 mg tablet 500 mg PO BID #14 tabs 10/19/23 (Cipro) hydrocodone 5 mg-acetaminophen 325 1 tab PO Q6H PRN pain #10 tabs 10/19/23 mg tablet promethazine 25 mg tablet 25 mg PO Q6H PRN nausea and 10/19/23 vomiting #10 tabs ibuprofen 800 mg tablet 800 mg PO Q8H PRN pain #30 tabs 03/26/24 hydroxyzine HCl 25 mg tablet 25 mg PO Q8H PRN withdrawal 06/28/24 symptoms #30 tabs prednisone 20 mg tablet 60 mg (3 x 20 mg) PO DAILY 5 days 06/28/24 #15 tabs triamcinolone acetonide 0.1 % 1 applic topical TID #30 grams 06/28/24 topical ointment Allergies Allergy/AdvReac Type Severity Reaction Status Date / Time No Known Allergies Allergy Verified 06/28/24 02:49 Review of Systems Narrative: Constitutional symptoms: Negative except as documented in HPI. Skin symptoms: Negative except as documented in HPI. Eye symptoms: Negative except as documented in HPI. ENMT symptoms: Negative except as documented in HPI. Respiratory symptoms: Negative except as documented in HPI. Cardiovascular symptoms: Negative except as documented in HPI. Gastrointestinal symptoms: Negative except as documented in HPI. Genitourinary symptoms: Negative except as documented in HPI. Musculoskeletal symptoms: Negative except as documented in HPI. Neurologic symptoms: Negative except as documented in HPI. Psychiatric symptoms: Negative except as documented in HPI. Endocrine symptoms: Negative except as documented in HPI. [facility] ED PFSH: Medical History Contact dermatitis Surgical History H/O tubal ligation History of appendectomy Social History Smoking and tobacco/nicotine status: current some day tobacco/nicotine user Alcohol intake: current Substance/Drug Use: never Physical Exam Narrative: EXAM NARRATIVE: General: Alert, no acute distress. Skin: warm and dry, raised erythematous bumps consistent with a contact dermatitis Head: Normocephalic Neck: Trachea midline Eye: Extraocular movements are intact. Ears, nose, mouth and throat: Oral mucosa moist Respiratory: Respirations are non-labored Musculoskeletal: Normal ROM Neurological: Alert and oriented, No focal neurological deficit observed. Psychiatric: Cooperative, appropriate mood & affect. Course Vital Signs: Vital signs: Vital Signs Temperature 98.3 F 06/28/24 02:46 Pulse Rate 77 06/28/24 02:46 Respiratory Rate 18 06/28/24 02:46 Blood Pressure 114/90 06/28/24 02:46 Pulse Oximetry 100 06/28/24 02:46 Oxygen Delivery Me thod Room Air 06/28/24 02:46 MDM - Skin/Abscess/Foreign Bdy Medicial Decision Making Assessment and plan: Contact dermatitis ?IM Decadron and p.o. hydroxyzine in the emergency room - Discharged home - Discussed plan with patient. Answered any questions. - Evaluation and treatment of this problem were appropriate in the emergency setting. No radiology studies performed this visit Discharge Plan Discharge Patient Disposition: Home Clinical Impression: Contact dermatitis Qualifiers: Contact dermatitis type: allergic Contact dermatitis trigger: non-food plants Qualified Code(s): L23.7 - Allergic contact dermatitis due to plants, except food Condition: Stable Prescriptions: New prednisone 20 mg tablet 60 mg PO DAILY 5 Days Qty: 15 0RF triamcinolone acetonide 0.1 % ointment 1 applic topical TID Qty: 30 0RF hydroxyzine HCl 25 mg tablet 25 mg PO Q8H PRN (Reason: withdrawal symptoms) Qty: 30 0RF No Action Zanfel Cleanser 1 ea topical BID Qty: 30 0RF cetirizine 10 mg tablet 10 mg PO DAILY PRN (Reason: allergy symptoms) Qty: 90 0RF triamcinolone acetonide 0.1 % cream 1 applic topical BID 7 Days Qty: 30 0RF metronidazole 500 mg tablet 500 mg PO BID 10 Days Qty: 20 0RF ibuprofen 800 mg tablet 800 mg PO Q8H PRN (Reason: pain) Qty: 30 0RF Tylenol Ex Str Rapid Release 500 mg Tablet 1,000 mg PO Q6H PRN (Reason: Pain) Cipro 500 mg tablet 500 mg PO BID Qty: 14 0RF hydrocodone-acetaminophen 5-325 mg tablet 1 tab PO Q6H PRN (Reason: pain) Qty: 10 0RF promethazine 25 mg tablet 25 mg PO Q6H PRN (Reason: nausea and vomiting) Qty: 10 0RF Discharge Orders: Discharge ED (Routine); Ordered 06/28/24 Ordered By: Trinity Harding Discharge Diet: Usual diet Discharge Activity: Increase activity as tolerated Patient Instructions: Contact Dermatitis (ED), Opioid Safety, Pain Management Activity Restrictions/Additional Instructions: Thank you for choosing [facility] for your healthcare needs today. Please realize this is an emergency room and that we are providing you with a medical screening exam and this may not be complete and all inclusive of all the testing and or work up that you may need to determine your ailment or severity of your illness. You have been screened and evaluated and felt safe for discharge. Health conditions do change or evolve sometimes and as such it is important that you follow up with your Primary Doctor to be re checked, 3-5 days is a general good time frame for follow up. You are always welcome to return to the ED for re assessment if your symptoms are worsening or you have new concerns Print Language: [place] Coding Level of Care Code ED Forest Resource Specialist for Chuck Holm
[2024-06-28] MEDS: dexamethasone 10 mg/mL INJ IM (03:02)
[2024-06-28] MEDS: hyDROXYzine 25 mg Capsule 50 MG PO (03:02)
[2024-06-28 03:05] VITALS: BP 114/90; PULSE 80; RESP 16; O2SAT 100
[2024-06-28 03:37] VITALS: BP 147/89; PULSE 71; RESP 16; O2SAT 100
== END 2024-06-28 03:40 | disposition home or self-care (01) ==
PROVIDERS: Emergency Provider Emergency Medicine
DX: L23.7 Allergic contact dermatitis due to plants, except food (principal); Z72.0 Tobacco use
CPT/HCPCS: 96372; 99284; J1100; J9999

== ENCOUNTER 2024-07-23 12:31 | Emergency (ER) | payer SELFPAY ==
[2024-07-23 12:39] VITALS: BP 119/71; PULSE 86; TEMP 36.6; O2SAT 98; BMI 19.2
--- NOTE | 2024-07-23 13:56 | W.ED.SKABFB ---
HPI - Skin/Abscess/Foreign Bdy General: Chief complaint: Skin/Abscess/Foreign Body Stated complaint: rash, itching on legs and arms Time Seen by Provider: 07/23/24 13:55 History of Present Illness: 53-year-old female presents emergency room with complaints of rash on her arms and legs after possible exposure to poison sumac. She has tried some [id number] antihistamines with no relief she has not any difficulties swallowing. Associated symptoms: Deny chills or fever(s) Related Data Home Medications ?Medication ?Instructions ?Recorded ?Confirmed acetaminophen 500 mg tablet 1,000 mg PO Q6H PRN Pain 08/18/22 09/13/23 Previous Rx's ?Medication ?Instructions ?Recorded cetirizine 10 mg tablet 10 mg PO DAILY PRN allergy 08/20/23 symptoms #90 tabs skin cleanser combination no.8 1 ea topical BID contact 08/20/23 (Zanfel topical cleanser) dermatitis #30 grams triamcinolone acetonide 0.1 % 1 applic topical BID 7 days #30 09/13/23 topical cream grams metronidazole 500 mg tablet 500 mg PO BID 10 days #20 tabs 09/17/23 ciprofloxacin HCl 500 mg tablet 500 mg PO BID #14 tabs 10/19/23 (Cipro) hydrocodone 5 mg-acetaminophen 325 1 tab PO Q6H PRN pain #10 tabs 10/19/23 mg tablet promethazine 25 mg tablet 25 mg PO Q6H PRN nausea and 10/19/23 vomiting #10 tabs ibuprofen 800 mg tablet 800 mg PO Q8H PRN pain #30 tabs 03/26/24 hydroxyzine HCl 25 mg tablet 25 mg PO Q8H PRN withdrawal 06/28/24 symptoms #30 tabs triamcinolone acetonide 0.1 % 1 applic topical TID #30 grams 06/28/24 topical ointment hydroxyzine HCl 25 mg tablet 25 mg PO Q6H PRN itching #15 tabs 07/23/24 methylprednisolone 4 mg tablets in See Rx Instructions PO .COMPLEX 07/23/24 a dose pack (Medrol (Go)) #21 ea Allergies Allergy/AdvReac Type Severity Reaction Status Date / Time No Known Allergies Allergy Verified 06/28/24 02:49 Review of Systems Const: Denies: fever(s) or chills Card: Denies: chest pain Resp: Denies: dyspnea GI: Denies: abdominal pain : Denies: dysuria, urinary frequency or urinary urgency Musc: Denies: neck pain or back pain Skin/Breast: Reports: rash, pruritus and erythema PFSH ED PFSH: Medical History Contact dermatitis Surgical History H/O tubal ligation History of appendectomy Social History Smoking and tobacco/nicotine status: current some day tobacco/nicotine user Alcohol intake: current Substance/Drug Use: never Physical Exam Const: COMMON NORMALS: no acute distress GENERAL APPEARANCE: cooperative and comfortable ORIENTATION/CONSCIOUSNESS: Yes awake, Yes oriented to person, Yes oriented to place and Yes oriented to time HENMT: COMMON NORMALS: normocephalic, atraumatic and hearing grossly normal bilaterally HEAD & SCALP: normocephalic and atraumatic Resp: COMMON NORMALS: normal respiratory effort, No retractions, No use of accessory muscles and clear to auscultation bilaterally AUSCULTATION: clear to auscultation bilaterally Cardio: COMMON NORMALS: regular rate, regular rhythm and No murmurs present (Cardio) RATE: regular rate RHYTHM: regular rhythm GI: COMMON NORMALS: Soft to palpation and No hepatosplenomegaly present AUSCULTATION: Yes normoactive bowel sounds PALPATION: Yes Soft to palpation, No Tenderness to palpation present (GI), No Guarding due to palpation present (GI) and Yes No hepatosplenomegaly present Extremity: COMMON NORMALS: normal to inspection, capillary refill normal, no clubbing, cyanosis or edema, no calf tenderness and no pedal edema Neuro: SENSORIUM/ORIENTATION: Yes oriented to person, Yes oriented to place and Yes oriented to time Skin: OTHER: Red mildly raised rash posterior thigh lower legs and the forearms none about the face. No pustules no vesicles Course Vital Signs: Vital signs: Vital Signs Temperature 97.8 F 07/23/24 12:39 Pulse Rate 78 07/23/24 14:41 Blood Pressure 155/93 07/23/24 14:41 Pulse Oximetry 95 07/23/24 14:41 Oxygen Delivery Me thod Room Air 07/23/24 12:39 MDM - Skin/Abscess/Foreign Bdy Medicial Decision Making Contact dermatitis patient given Benadryl and dexamethasone discharged home on steroid taper and hydroxyzine follow-up as needed. Topical medications as needed for relief of symptoms such as [id number] oatmeal baths calamine etc. Medical Records I reviewed the patient's medical records. Lab Data I reviewed the patient's lab results. No radiology studies performed this visit Discharge Plan Discharge Patient Disposition: Home Clinical Impression: Contact dermatitis Qualifiers: Contact dermatitis type: allergic Contact dermatitis trigger: non-food plants Qualified Code(s): L23.7 - Allergic contact dermatitis due to plants, except food Condition: Stable Prescriptions: New methylprednisolone [Medrol (Go)] 4 mg tablets,dose pack See Rx Instructions .ROUTE .COMPLEX Qty: 21 0RF Rx Instructions: orally per package directions hydroxyzine HCl 25 mg tablet 25 mg PO Q6H PRN (Reason: itching) Qty: 15 0RF No Action Zanfel Cleanser 1 ea topical BID Qty: 30 0RF cetirizine 10 mg tablet 10 mg PO DAILY PRN (Reason: allergy symptoms) Qty: 90 0RF triamcinolone acetonide 0.1 % cream 1 applic topical BID 7 Days Qty: 30 0RF metronidazole 500 mg tablet 500 mg PO BID 10 Days Qty: 20 0RF ibuprofen 800 mg tablet 800 mg PO Q8H PRN (Reason: pain) Qty: 30 0RF Tylenol Ex Str Rapid Release 500 mg Tablet 1,000 mg PO Q6H PRN (Reason: Pain) Cipro 500 mg tablet 500 mg PO BID Qty: 14 0RF hydrocodone-acetaminophen 5-325 mg tablet 1 tab PO Q6H PRN (Reason: pain) Qty: 10 0RF promethazine 25 mg tablet 25 mg PO Q6H PRN (Reason: nausea and vomiting) Qty: 10 0RF triamcinolone acetonide 0.1 % ointment 1 applic topical TID Qty: 30 0RF hydroxyzine HCl 25 mg tablet 25 mg PO Q8H PRN (Reason: withdrawal symptoms) Qty: 30 0RF Discharge Orders: Discharge ED (Routine); Ordered 07/23/24 Ordered By: Eleazar Armas Discharge Diet: Usual diet Discharge Activity: Increase activity as tolerated Patient Instructions: Opioid Safety, Pain Management Activity Restrictions/Additional Instructions: Thank you for choosing [facility] for your healthcare needs today. It is very important that you follow up as instructed or that you return to the Emergency Department should you have concerns or if your condition changes or worsens in any way. You are seen in the emergency room with complaint of rash. Rash is likely from contact with poisonous plant. You were given steroids and antihistamines in the emergency room recommend to use the steroid taper beginning tomorrow additionally use the hydroxyzine 1 every 6 hours as needed. Print Language: Panamanian Coding Level of Care Code ED Cisco Network Engineer for Chuck Holm
[2024-07-23] MEDS: diphenhydrAMINE 50 mg/mL SDV 1mL IM (14:14)
[2024-07-23] MEDS: dexamethasone 10 mg/mL INJ IM (14:14)
[2024-07-23 14:41] VITALS: BP 155/93; PULSE 78; O2SAT 95
== END 2024-07-23 14:42 | disposition home or self-care (01) ==
PROVIDERS: Emergency Provider Family Medicine
DX: L23.7 Allergic contact dermatitis due to plants, except food (principal); Z72.0 Tobacco use
CPT/HCPCS: 96372; 99284; J1100; J1200

== ENCOUNTER 2024-11-28 23:40 | Emergency (ER) | payer SELFPAY ==
[2024-11-28 23:42] VITALS: BP 131/78; PULSE 97; RESP 16; TEMP 36.7; O2SAT 99
--- OUTSIDE RECORDS SUMMARY | 2024-11-28 23:47 | XMS_ITS | Encounter Summary ---
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
--- OUTSIDE RECORDS SUMMARY | 2024-11-28 23:47 | XMS_ITS | Encounter Summary ---
Author Organization [facility] Address [address] 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
--- OUTSIDE RECORDS SUMMARY | 2024-11-28 23:47 | XMS_ITS | Encounter Summary ---
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
--- OUTSIDE RECORDS SUMMARY | 2024-11-28 23:47 | XMS_ITS | Encounter Summary ---
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
--- OUTSIDE RECORDS SUMMARY | 2024-11-28 23:47 | XMS_ITS | Encounter Summary ---
Author Organization [facility] Address [address] 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
--- OUTSIDE RECORDS SUMMARY | 2024-11-28 23:47 | XMS_ITS | Encounter Summary ---
Author Organization [facility] Address [address] 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
--- OUTSIDE RECORDS SUMMARY | 2024-11-28 23:47 | XMS_ITS | Encounter Summary ---
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
--- OUTSIDE RECORDS SUMMARY | 2024-11-28 23:48 | XMS_ITS | Encounter Summary ---
Author Organization [facility] Address [address] [facility] Attn: [place] [address] Care Team Providers Care Credit Risk Management Director Name Role Phone Unavailable Primary Care Provider Unavailabl e Encounter Details Date Type Department Care Team (Latest Contact Info) Description 12/01/1994 Emergency WordHernandez NO ADDRESS ON FILE Social History Tobacco Use Types Packs/Day Years Used Date Smoking Tobacco: Never Assessed Comments Unknown Sex and Gender Information Value Date Recorded Sex Assigned at Not on file Legal Sex Female 7:23 AM GLASS CRUSHER Gender Identity Not on file Sexual Orientation Not on file documented as of this encounter Plan of Treatment Not on file documented as of this encounter Visit Diagnoses Not on filedocumented in this encounter
--- OUTSIDE RECORDS SUMMARY | 2024-11-28 23:48 | XMS_ITS | Encounter Summary ---
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
--- OUTSIDE RECORDS SUMMARY | 2024-11-28 23:48 | XMS_ITS | Encounter Summary ---
Author Organization [facility] Address [address] [facility] Attn: [place] [address] Care Team Providers Care Viticulturist Name Role Phone Unavailable Primary Care Provider Unavailabl e Encounter Details Date Type Department Care Team (Late st Contact Info) Description 10/16/1997 Outpatient Historical Russ Courtney MD NO ADDRESS ON FILE Social History Tobacco Use Types Packs/Day Years Used Date Smoking Tobacco: Never Assessed Comments Unknown Sex and Gender Information Value Date Recorded Sex Assigned at Not on file Legal 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
--- OUTSIDE RECORDS SUMMARY | 2024-11-28 23:48 | XMS_ITS | Encounter Summary ---
Author Organization [facility] Address [address] [facility] Attn: [place] [address] Care Team Providers Care Wood Die Maker Name Role Phone Unavailable Primary Care Provider Unavailabl e Encounter Details Date Type Department Care Team (Latest Contact Info) Description 04/10/1997 Emergency Social History Tobacco Use Types Packs/Day Years Used Date Smoking Tobacco: Never Assessed Comments Unknown Sex and Gender Information Value Date Recorded Sex Assigned at Not on file Legal Sex Female 7:23 AM BUSINESS TRAINER Gender Identity Not on file Sexual Orientation Not on file documented as of this encounter Plan of Treatment Not on file documented as of this encounter Visit Diagnoses Not on filedocumented in this encounter
--- OUTSIDE RECORDS SUMMARY | 2024-11-28 23:48 | XMS_ITS | Encounter Summary ---
Author Organization 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
--- OUTSIDE RECORDS SUMMARY | 2024-11-28 23:48 | XMS_ITS | Clinical Summary ---
Author Organization [facility] [address] [address] [place] [address] Care Team Providers Care Funeral Planning Counselor Name Role Phone Unavailable Primary Care Provider Unavailabl e Allergies No known active allergies Medications No known medications Immunizations Immunization Administration Dates Next Due (ADACEL/BOOSTRIX)(10 YR UP) TDAP VACCINE, 0.5ML, IM 05/16/2013 Meningococcal A Conjugate Vaccine IM 05/16/2013 Social History Tobacco Use Types Packs/Day Years Used Date Smoking Tobacco: Every Day Cigarettes Smokeless Tobacco: Never Alcohol Use Standard Drinks/Week Comments No 0 (1 standard drink = 0.6 oz pur e alcohol) Comments Unknown Sex and Gender Information Value Date Recorded Sex Assigned at Not on file Legal Sex Female 1:21 PM COUNTERINTELLIGENCE ANALYST Gender Identity Not on file Sexual Orientation Not on file Last Filed Vital Signs Vital Sign Reading Time Taken Comments Blood Pressure 122/80 02/23/2021 6:31 PM COUNTERINTELLIGENCE ANALYST Pulse - - Temperature 36.6 C (97.8 F) 02/23/2021 6:31 PM COUNTERINTELLIGENCE ANALYST Respiratory Rate 20 02/23/2021 6:31 PM COUNTERINTELLIGENCE ANALYST Oxygen Saturation 100% 02/23/2021 6:31 PM COUNTERINTELLIGENCE ANALYST Inhaled Oxygen Concentration - - Weight 54.4 kg (120 lb) 02/23/2021 6:31 PM COUNTERINTELLIGENCE ANALYST Height 175.3 cm (5' 9 ) 02/23/2021 6:31 PM COUNTERINTELLIGENCE ANALYST Body Mass Index 17.72 02/23/2021 6:31 PM COUNTERINTELLIGENCE ANALYST Plan of Treatment Health Maintenance Due Date Last Done Comments HEPATITIS B VACCINES (1 of 3 - 19+ 3-dose series) 09/04 HPV/Cotest (21-29) 09/29/1992 CERVICAL CANCER SCREENING 09/29/2001 HPV/Cotest (30-65) 09/29/2001 PAP SMEAR 09/29/2001 BREAST CANCER SCREENING 2011 COLORECTAL SCREENING 09/29/2016 Colorectal Cancer Screening 09/29/2016 FIT-DNA Q 3 years 09/29/2016 FIT/FOBT Q 1 year 09/29/2016 Flex Sig/CT Colonography Q 5 years 09/29/2016 ZOSTER VACCINE (1 of 2) 09/29/2021 DTAP/TDAP/TD VACCINES (2 - Td or Tdap) 05/16/2023 INFLUENZA VACCINE (#1) 2024
--- OUTSIDE RECORDS SUMMARY | 2024-11-28 23:48 | XMS_ITS | Encounter Summary ---
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
--- OUTSIDE RECORDS SUMMARY | 2024-11-28 23:48 | XMS_ITS | Encounter Summary ---
Author Organization [facility] Address [address] [facility] Attn: [place] [address] Care Team Providers Care Folding Rules Printing Machine Operator Name Role Phone Unavailable Primary Care Provider Unavailabl e Encounter Details Date Type Department Care Team (Latest Contact Info) Description 03/01/1997 Emergency Social History Tobacco Use Types Packs/Day Years Used Date Smoking Tobacco: Never Assessed Comments Unknown Sex and Gender Information Value Date Recorded Sex Assigned at Not on file Legal Sex Female 7:23 AM ELEVATOR ERECTOR Gender Identity Not on file Sexual Orientation Not on file documented as of this encounter Plan of Treatment Not on file documented as of this encounter Visit Diagnoses Not on filedocumented in this encounter
--- OUTSIDE RECORDS SUMMARY | 2024-11-28 23:48 | XMS_ITS | Clinical Summary ---
Author Organization [address] [place] [address] [address] [place] [address] Care Team Providers Care Lawyer Criminal Name Role Phone Unavailable Primary Care Provider Unavailabl e Allergies No known active allergies Medications diphenhydrAMINE (BENADRYL) 25 mg Oral Cap Take 50 mg by mouth every 6 hours as needed. Active ibuprofen (MOTRIN) 200 mg Oral Tab Take 600 mg by mouth every 6 hours as needed for Pain. Active Immunizations Immunization Administration Dates Next Due (ADACEL/BOOSTRIX)(10 YR UP) TDAP VACCINE, 0.5ML, IM 05/16/2013 Meningococcal A Conjugate Vaccine IM 05/16/2013 Social History Tobacco Use Types Packs/Day Years Used Date Smoking Tobacco: Every Day Cigarettes 0.5 15 Tobacco Cessation:Ready to Q uit: Yes; Counseling Given: Yes Alcohol Use Standard Drinks/Week Comments No 0 (1 standard drink = 0.6 oz pur e alcohol) Comments No Sex and Gender Information Value Date Recorded Sex Assigned at Not on file Legal Sex Female 7:23 AM GALLERY OR MUSEUM ATTENDANT Gender Identity Not on file Sexual Orientation Not on file Occupation Industry Job Start Date Job End Date Not on file Not on file Not on file Not on file Last Filed Vital Signs Vital Sign Reading Time Taken Comments Blood Pressure 157/94 06/28/2020 10:48 AM CDT Pulse 68 12/20/2012 11:28 AM CDT Temperature 36.4 C (97.5 F) 06/28/2020 10:48 AM CDT Respiratory Rate 16 06/28/2020 10:48 AM CDT Oxygen Saturation 97% 06/28/2020 10:48 AM CDT Inhaled Oxygen Concentration - - Weight 55.8 kg (123 lb) 06/28/2020 10:48 AM CDT Height 175.3 cm (5' 9 ) 06/28/2020 10:48 AM CDT Body Mass Index 18.16 06/28/2020 10:48 AM CDT Plan of Treatment Health Maintenance Due Date [...]
--- OUTSIDE RECORDS SUMMARY | 2024-11-28 23:48 | XMS_ITS | Encounter Summary ---
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
--- OUTSIDE RECORDS SUMMARY | 2024-11-28 23:48 | XMS_ITS | Encounter Summary ---
Author Organization [facility] Address [address] [facility] Attn: [place] [address] Care Team Providers Care Infantry Operations Specialist Name Role Phone Unavailable Primary Care Provider Unavailabl e Encounter Details Date Type Department Care Team (Latest Contact Info) Description 04/15/1999 Emergency Social History Tobacco Use Types Packs/Day Years Used Date Smoking Tobacco: Never Assessed Comments Unknown Sex and Gender Information Value Date Recorded Sex Assigned at Not on file Legal Sex Female 7:23 AM SALES AND MARKETING ADMINISTRATOR Gender Identity Not on file Sexual Orientation Not on file documented as of this encounter Plan of Treatment Not on file documented as of this encounter Visit Diagnoses Not on filedocumented in this encounter
[2024-11-29] VITALS: BP 131/78; PULSE 92; O2SAT 96
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
--- NOTE | 2024-11-29 00:20 | XRR_ITS ---
PROCEDURE INFORMATION: Exam: XR Chest Exam date and time: 11/29/2024 12:32 AM Age: 54 years old Clinical indication: Other: Left lateral rib tenderness, shortness of breath TECHNIQUE: Imaging protocol: Radiologic exam of the chest. Views: 2 views. COMPARISON: CR XR chest 1V portable [id number] 10/24/2019 5:04 PM FINDINGS: Lungs: Unremarkable. No consolidation. Pleural spaces: Unremarkable. No pleural effusion. No pneumothorax. Heart/Mediastinum: Unremarkable. No cardiomegaly. Bones/joints: Unremarkable. XR/XR chest 2V* [id number] IMPRESSION: No acute findings.
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
[2024-11-29 00:30] VITALS: BP 145/92; PULSE 78; O2SAT 96
[2024-11-29] MEDS: lidocaine-epi 1% 20 mL INJ INJECTION (01:31)
[2024-11-29 02:00] VITALS: BP 157/95; PULSE 88; O2SAT 95
[2024-11-29 02:37] VITALS: BP 151/102; PULSE 76; RESP 17; O2SAT 97
== END 2024-11-29 02:37 | disposition home or self-care (01) ==
PROVIDERS: Emergency Provider Physician Assistant
DX: S01.01XA Laceration without foreign body of scalp, initial encounter (principal); Y00.XXXA Assault by blunt object, initial encounter; Z72.0 Tobacco use
CPT/HCPCS: 12002; 70450; 71046; 72125; 90715; 99283; J9999

== ENCOUNTER 2025-01-10 09:50 | Emergency (ER) | payer MEDICAID, SELFPAY ==
[2025-01-10 09:52] VITALS: BP 132/60; PULSE 83; RESP 18; TEMP 37.1; O2SAT 99; BMI 19.2
[2025-01-10] MEDS: triamcinolone 40 mg/mL SDV 80 MG IM (10:06)
[2025-01-10 10:17] LABS: Glucose Urine UA 1+ (Normal); Nitrate Urine Positive (Negative); Specific Gravity, Urine 1.029 (1.005-1.030)
[2025-01-10] MEDS: cefTRIAXone 250 MG in water for injection-sterile 0.9 ML IM (10:31)
[2025-01-10 10:39] LABS: Add Urine Microscopic? YES
--- NOTE | 2025-01-10 11:07 | ED_ITS ---
HPI - Skin/Abscess/Foreign Bdy General: Chief complaint: Skin/Abscess/Foreign Body Stated complaint: rash all over, itching, discharge, odor Time Seen by Provider: 01/10/25 09:52 Source: patient Mode of arrival: ambulatory Limitations: no limitations History of Present Illness: 54-year-old female states she had a rash to her arms and back over the last 3 days states she has been exposed to poison sumac and believes it is from that states is very pruritic in nature denies any fevers. She denies any worse improving factors. She states she also recently split with her boyfriend because she believes he has been cheating on her and she had noticed over the last 3 to 4 days she has had a foul vaginal discharge along with some vaginal itching. She denies any abdominal or pelvic pain. Related Data Previous Rx's ?Medication ?Instructions ?Recorded cetirizine 10 mg tablet 10 mg PO DAILY PRN allergy 0 08/20/23 symptoms #90 tabs Allergies Allergy/AdvReac Type Severity Reaction Status Date / Time No Known Allergies Allergy Verified 06/28/24 02:49 Review of Systems Skin/Breast: Reports: rash [facility] ED PFSH: Medical History Contact dermatitis Surgical History H/O tubal ligation History of appendectomy Social History Smoking and tobacco/nicotine status: current some day tobacco/nicotine user Alcohol intake: current Substance/Drug Use: never Physical Exam Const: COMMON NORMALS: no acute distress, patient oriented x3 and healthy appearing HENMT: COMMON NORMALS: normocephalic and atraumatic HEAD & SCALP: normocephalic and atraumatic Eye: COMMON NORMALS: conjunctivae normal CONJUNCTIVA: Yes conjunctivae normal Neck/C-Spine: COMMON NORMALS: full ROM and supple Chest: COMMONS NORMALS: normal inspection of the chest Resp: COMMON NORMALS: normal respiratory effort Cardio: COMMON NORMALS: regular rate RATE: regular rate : OTHER: No cervical motion tenderness cervix was normal no signs of cervicitis had a mild amount of clear discharge Extremity: COMMON NORMALS: normal to inspection and full ROM Neuro: COMMON NORMALS: patient oriented x3, moves all extremities and no focal motor deficits Psych: COMMON NORMALS: mental status grossly normal, Normal thought process present and cooperative THOUGHT PROCESS: Normal thought process present Skin: COMMON NORMALS: no wounds NARRATIVE SKIN EXAM: Rash noted to back and extremities Course Vital Signs: Vital signs: Vital Signs Temperature 98.8 F 01/10/25 09:52 Pulse Rate 83 01/10/25 09:52 Respiratory Rate 18 01/10/25 09:52 Blood Pressure 132/60 01/10/25 09:52 Pulse Oximetry 99 01/10/25 09:52 Oxygen Delivery Me thod Room Air 01/10/25 09:52 MDM - Skin/Abscess/Foreign Bdy Medicial Decision Making Patient presents with rash along with vaginal discharge. Etiologies such as PID were considered. She had no cervical motion tenderness on exam no fever here no signs of PID. She did have acute cystitis wet prep here showed no signs of trichomonas. Did go ahead and treat her for possible gonorrhea and chlamydia with Rocephin and azithromycin here. Those results are still pending at this time and patient will be notified when they are back. She did have a rash consistent with poison linette/sumac did give her Kenalog Decadron here. No signs of Watters-Anatoly's. I did go over all of this with patient and will write her prescription for Keflex she understands and agrees to plan return if worsening. Medical Records I reviewed the patient's medical records. Lab Data I reviewed the patient's lab results. Laboratory Results Urine Color Dark yellow (Yellow) A 01/10/25 10:04 Urine Appearance Turbid (CLEAR) A 01/10/25 10:04 Urine pH 5.0 (5-7) 01/10/25 10:04 Ur Specific [place] 1.029 (1.005-1.030) 01/10/25 10:04 Urine Protein 1+ (Negative) A 01/10/25 10:04 Urine Glucose (UA) 1+ (Normal) H 01/10/25 10:04 Urine Ketones Trace (Negative) 01/10/25 10:04 Urine Blood Trace (Negative) A 01/10/25 10:04 Urine Nitrate Positive (Negative) A 01/10/25 10:04 Urine Bilirubin Negative (Negative) 01/10/25 10:04 Urine Urobilinogen 1.0 mg/dL (Negative) 01/10/25 10:04 Ur Leukocyte Esterase 2+ (Negative) A 01/10/25 10:04 Urine RBC 0-4 /hpf (0-2) H 01/10/25 10:04 Urine WBC 21-50 /hpf (0-5) H 01/10/25 10:04 Ur Squamous Epith Cells 5-10 /hpf (0-5) H 01/10/25 10:04 Amorphous Sediment Not Reportable 01/10/25 10:04 Urine Bacteria 3+ /hpf (NONE) H 01/10/25 10:04 Hyaline Casts 0-4 /lpf H 01/10/25 10:04 Urine Mucus 1+ /hpf 01/10/25 10:04 C.trachomatis RNA (TMA) Cancelled 01/10/25 10:04 Chlamydia/GC Comment Cancelled 01/10/25 10:04 N.gonorrhoeae RNA (TMA) Cancelled 01/10/25 10:04 T. vaginalis Amp RNA Cancelled 01/10/25 10:04 All radiology interpretation(s) finalized by discharge Discharge Plan Discharge Patient Disposition: Home Clinical Impression: Poison linette, Acute cystitis, Vaginal discharge Condition: Stable Prescriptions: No Action cetirizine 10 mg tablet 10 mg PO DAILY PRN (Reason: allergy symptoms) Qty: 90 0RF Discharge Orders: Discharge ED (Routine); Ordered 01/10/25 Ordered By: Ramses Fajardo Discharge Diet: Advance as tolerated Discharge Activity: Resume usual activity Patient Instructions: Urinary Tract Infection in Women (ED), Poison Lin[place] (ED) Print Language: Persian Coding Level of Care Code ED Hot Dimpling Machine Operator for Chuck Holm
[2025-01-10 12:06] LABS: Trichomonas vaginalis (PCR) NOT DETECTED (Negative)
[2025-01-10 12:30] LABS: Neisseria Gonorrhea NOT DETECTED (Negative)
== END 2025-01-10 11:01 | disposition home or self-care (01) ==
PROVIDERS: Emergency Provider Emergency Medicine
DX: L23.7 Allergic contact dermatitis due to plants, except food (principal); N30.00 Acute cystitis without hematuria; N89.8 Other specified noninflammatory disorders of vagina; Z72.0 Tobacco use
CPT/HCPCS: 81001; 87077; 87086; 87186; 87210; 87491; 87591; 87661; 96372; 99284; J0696; J1100; J3301; Q0144